=== PATIENT | male | born 1990 | race Caucasian/White ===

== ENCOUNTER 2021-03-22 20:45 | Emergency (ER) | payer BC ==
[2021-03-22] MEDS ORDERED: Famotidine 20 MG/2 ML SDV IVPUSH ONE (20:49)
[2021-03-22] MEDS ORDERED: diphenhydrAMINE 50 MG/ML SDV IVPUSH ONE (20:49)
[2021-03-22] MEDS ORDERED: Sodium Chloride 0.9% 1,000 ML IV ONE (20:49)
[2021-03-22] MEDS ORDERED: methylPREDNISolone Sodium Succinate 125 MG/2 ML SDV IVPUSH ONE (20:49)
--- NOTE | 2021-03-22 20:51 | EDM.PDOC ---
ED HPI GENERAL MEDICAL PROBLEM - General Chief Complaint: Allergic Reaction Stated Complaint: ALLERGIC REACTION Time Seen by Provider: 03/22/21 20:50 Source of Information: Reports: Patient History Limitations: Reports: No Limitations - History of Present Illness INITIAL COMMENTS - FREE TEXT/NARRATIVE: HISTORY AND PHYSICAL: History of present illness: Patient is a 30-year-old male who presents to the emergency room with complaints of a hornet sting to his right upper lip. Shortly after he noticed hives throughout his body and started to drive home to take some Benadryl but started to feel some chest tightness and decided to come to the emergency room instead. He states earlier this year he had a hornet sting to his arm which did get red and swollen, but "not this bad". Patient denies any fever, chills, headache, change in vision, syncope or near syncope. Denies any chest pain, back pain, or cough. Denies any abdominal pain, nausea, vomiting, diarrhea, constipation or dysuria. Has not noted any blood in urine or stool. Patient has been eating and drinking appropriately. Review of systems: As per history of present illness and below otherwise all systems reviewed and negative. Past medical history: As per history of present illness and as reviewed below otherwise noncontributory. Surgical history: As per history of present illness and as reviewed below otherwise noncontributory. Social history: See social history for further information Family history: As per history of present illness and as reviewed below otherwise noncontributory. Physical exam: General: Well developed and well nourished. Alert and orientated x 3. Nontoxic in appearance and in no acute distress. Vital signs are stable and have been reviewed by me. Nursing notes were reviewed. HEENT: See skin for details, normocephalic, pupils equal and reactive bilaterally, negative for conjunctival pallor or scleral icterus, mucous membranes moist, TMs normal bilaterally, throat clear, neck supple, nontender, trachea midline. No drooling or trismus noted. No meningeal signs. No hot potato voice noted. Lungs: Clear to auscultation bilaterally. No wheezes, rales, or rhonchi. Chest nontender. Normal work of breathing, no accessory muscles used. Heart: S1S2, regular rate and rhythm without overt murmur, gallops, or rubs. No JVD. No peripheral edema Abdomen: Soft, nondistended, nontender. Normoactive bowel sounds. Negative for masses or costovertebral tenderness. Skin: Right upper corner of lip is swollen from wasp sting. Does not encroach into the oral airway. He does have raised hives throughout his body which with pruritus. Hematologic: No petechiae or purpra. Mucosa appropriate color and normal nail bed color and refill. Extremities: Atraumatic, moves all extremities per self without difficulty or deficits, negative for cords or calf pain. Neurovascular unremarkable. Neuro: Awake, alert, oriented. Cranial nerves II through XII unremarkable. Cerebellum unremarkable. Motor and sensory unremarkable throughout. Exam nonfocal. Psychiatric: Mood and affect are appropriate. Normal thought process. Answering questions appropriately. Notes: *This patient was seen and evaluated during the 2019 SARS-CoV-2 novel coronavirus pandemic period. Community viral transmission is ongoing at time of this encounter and the emergency department is operating under pandemic response procedures. Patient is a 30-year-old male who presents to the emergency room with an allergic reaction related to a hornet sting to his right upper lip. Prior to arrival he has not taken any medications. He states he did have a less severe allergic reaction earlier this year from a hornet sting, had resolved with Benadryl. Patient states he does have some chest tightness and itching related to the hives that are throughout his body. His lung sounds are clear and vital signs are stable. We will give him IV fluid and medication. We will watch patient for approximately an hour for improvement. Patient has greatly improved after the IV fluids and medications. Hives are almost gone and the swelling that is localized to the right upper lip has decreased. Vital signs are stable. Lung sounds remain clear. He feels comfortable being discharged home. I will give him an EpiPen to keep with him for emergencies. Also place him on a 3-day course of steroid. I have talked with the patient about today's findings, in addition to providing specific details for plan of care. Reassessment at the time of disposition demonstrates that the patient is in no acute distress. The patient is stable for discharge, counseling was provided and we discussed in great detail signs and symptoms that would prompt them to return to the Emergency Department. Medication, follow up and supportive care measures were reviewed and discussed. Voices understanding and is agreeable to plan of care. Denies any further questions or concerns at this time. Diagnostics: None Therapeutics: IV fluid, Benadryl, Pepcid, Solu-Medrol Impression: Allergic reaction Plan: 1. You have been given medications that may cause you to be drowsy. Please do not drive for the remainder of the day. 2. While symptomatic continue to routinely take Benadryl 50mg every 4-6 hours and Zantac 150mg twice daily. Take the prescribed steroid as prescribed. [facility] is open at noon tomorrow, you can fill this medication and start as directed. 3. Carry your Epi-Pen with you at all times. Use in the case of an emergency and call 911 and/or present to the ER. 4. You may use topical calamine lotion, cool tempid oatmeal baths, Aveeno bath/lotions. 5. Please follow up with your Primary care doctor tomorrow. Return to the ED as needed and as discussed. Definitive disposition and diagnosis as appropriate pending reevaluation and review of above. Onset: Today chest Pain Score (Numeric/FACES): 4 - Related Data Home Meds: Home Meds EPINEPHrine [Epipen] 0.3 mg IM ASDIRECTED PRN #1 pen 03/22/21 [Rx] predniSONE [Prednisone] 40 mg PO DAILY 3 Days #6 tablet 03/22/21 [Rx] ED ROS ALLERGIC REACTION - Review of Systems Review Of Systems: Comprehensive ROS is negative, except as noted in HPI. ED EXAM GENERAL NO PERIP PULSE - Physical Exam Exam: See Below (See dictation) Course - Vital Signs Last Recorded V/S: Last Vital Signs Temp 98.1 F 03/22/21 20:49 Pulse 67 03/22/21 21:03 Resp 16 03/22/21 21:03 BP 133/73 03/22/21 21:03 Pulse Ox 96 03/22/21 21:03 - Orders/Labs/Meds Orders: Active Orders 24 hr Category Date Time Status Sodium Chloride 0.9% [Normal Saline] 1,000 ml Med 03/22/21 20:49 Active IV STAT Medication Orders Sodium Chloride (Normal Saline) 1,000 mls @ 999 mls/hr IV STAT ONE Stop: 03/22/21 21:49 Last Admin: 03/22/21 20:54 Dose: 999 mls/hr Documented by: MARLIN Meds: Medications Generic Name Dose Route Start Last Admin Trade Name Freq PRN Reason Stop Dose Admin Sodium Chloride 1,000 mls @ 999 mls/hr 03/22/21 20:49 03/22/21 20:54 Normal Saline IV 03/22/21 21:49 999 mls/hr STAT ONE Administration Discontinued Medications Generic Name Dose Route Start Last Admin Trade Name Freq PRN Reason Stop Dose Admin Diphenhydramine HCl 50 mg 03/22/21 20:49 03/22/21 20:56 Diphenhydramine 50 Mg/Ml Sdv IVPUSH 03/22/21 20:50 50 mg ONETIME ONE Administration Famotidine 20 mg 03/22/21 20:49 03/22/21 20:56 Famotidine 20 Mg/2 Ml Sdv IVPUSH 03/22/21 20:50 20 mg ONETIME ONE Administration Methylprednisolone Sodium Succinate 125 mg 03/22/21 20:49 03/22/21 20:56 Methylprednisolone Sodium Succinate 125 Mg/2 Ml Sdv IVPUSH 03/22/21 20:50 125 mg ONETIME ONE Administration Departure - Departure Time of Disposition: 21:40 Disposition: Home, Self-Care 01 Clinical Impression: Allergic reaction to bee sting - Discharge Information Prescriptions: EPINEPHrine [Epipen] 0.3 mg IM ASDIRECTED PRN #1 pen PRN Reason: Allergies predniSONE [Prednisone] 40 mg PO DAILY 3 Days #6 tablet Instructions: Anaphylactic Reaction, Adult Forms: ED Department Discharge Additional Instructions: The following information is given to patients seen in the emergency department who are being discharged to home. This information is to outline your options for follow-up care. We provide all patients seen in our emergency department with a follow-up referral. The need for follow-up, as well as the timing and circumstances, are variable depending upon the specifics of your emergency department visit. If you don't have a primary care physician on staff, we will provide you with a referral. We always advise you to contact your personal physician following an emergency department visit to inform them of the circumstance of the visit and for follow-up with them and/or the need for any referrals to a consulting specialist. The emergency department will also refer you to a specialist when appropriate. This referral assures that you have the opportunity for follow-up care with a specialist. All of these measure are taken in an effort to provide you with optimal care, which includes your follow-up. Under all circumstances we always encourage you to contact your private physician who remains a resource for coordinating your care. When calling for follow-up care, please make the office aware that this follow-up is from your recent emergency room visit. If for any reason you are refused follow-up, please contact the [facility] Emergency Department at and asked to speak to the emergency department charge nurse. [facility] [address] [place] [id number] [facility] [address] [place] [id number] Thank you for choosing the [facility] emergency department in [place] for your medical needs today. It was a pleasure caring for you. Today you were seen in the emergency department for allergic reaction to bee sting. 1. You have been given medications that may cause you to be drowsy. Please do not drive for the remainder of the day. 2. While symptomatic continue to routinely take Benadryl 50mg every 4-6 hours and Zantac 150mg twice daily. Take the prescribed steroid as prescribed. [facility] is open at noon tomorrow, you can fill this medication and start as directed. 3. Carry your Epi-Pen with you at all times. Use in the case of an emergency and call 911 and/or present to the ER. 4. You may use topical calamine lotion, cool tempid oatmeal baths, Aveeno bath/lotions. 5. Please follow up with your Primary care doctor tomorrow. Return to the ED as needed and as discussed. Definitive disposition and diagnosis as appropriate pending reevaluation and review of above. Sepsis Event Note (ED) - Focused Exam Vital Signs: Vital Signs Temp Pulse Resp BP Pulse Ox 03/22/21 21:03 67 16 133/73 96 03/22/21 20:49 98.1 F 96 16 133/73 96 - My Orders Last 24 Hours: My Active Orders 03/22/21 20:49 Sodium Chloride 0.9% [Normal Saline] 1,000 ml IV STAT - Assessment/Plan Last 24 Hours: My Active Orders 03/22/21 20:49 Sodium Chloride 0.9% [Normal Saline] 1,000 ml IV STAT
== END 2021-03-22 22:09 | disposition home or self-care (01) ==
LOC: MW.ED 20:45
DX: T63.441A Toxic effect of venom of bees, accidental (unintentional), initial encounter (principal)
CPT/HCPCS: 96374; 96375; 99282; J1200; J2930; J3490; J7030; 99283